=== PATIENT | male | born 1965 | race Hispanic/Latino ===

== ENCOUNTER 2018-09-26 10:30 | Inpatient (IN) | payer OTHER, SELFPAY ==
[~2018-09-26] VITALS: Ht 177.8 cm; Wt 98.1 kg
[2018-09-26 16:49] VITALS: BP 151/94
[2018-09-26 17:02] LABS: APPEARANCE,URINE Clear (CLEAR); BILIRUBIN,URINE Negative (NEGATIVE); COLOR,URINE Yellow (YELLOW); GLUCOSE, URINE (UA) Negative (NEGATIVE); KETONES,URINE Negative (NEGATIVE); LEUKOCYTE ESTERASE ,URINE Negative (NEGATIVE); NITRATE,URINE Negative (NEGATIVE); OCCULT BLOOD,URINE Trace (NEGATIVE); PROTEIN,URINE Negative (NEGATIVE)
[2018-09-26 17:09] LABS: INR 0.89 (0.85-1.15); PARTIAL THROMBOPLASTIN TIME 31.7 SEC (26.3-35.5); PROTHROMBIN TIME 9.4 SEC (9.6-11.6)
[2018-09-26] MEDS ORDERED: LOSA1TAB37 PO (17:12)
[2018-09-26 17:20] LABS: RBC,URINE 0-1 /HPF (0-1); WBC,URINE 0-1 /HPF (0-1)
[2018-09-26 17:21] LABS: BACTERIA,URINE Rare /HPF (None Seen); SQUAMOUS EPITHELIAL CELL,UR None Seen /HPF (0-2)
[2018-09-29] VITALS (26 sets, daily range): BP systolic 121–190; BP diastolic 74–104
[2018-09-29] MEDS: CEFAZOLIN SODIUM 1 GM VIAL IVP SCH ×3 (06:00→16:32)
[2018-09-29] MEDS ORDERED: LACTATED RINGERS 1000ML 1,000 ML IV ONE (06:52)
--- NOTE | 2018-09-29 06:57 | NUR ---
POTENTIAL FOR INFECTION: SHAVED LEFT KNEE / LEG PER LINDA AMBROSIO. WIPED DOWN WITH NAOMIE: 2% CHLORHEXIDINE GLUCONATE CLOTH PATIENTS PRE-OP SKIN PREP.
[2018-09-29] MEDS ORDERED: CEFAZOLIN SODIUM 1 GM VIAL ONE ×2 (07:34→10:49)
[2018-09-29] MEDS ORDERED: TRANEXAMIC ACID 1000MG/10ML IV ONE ×2 (07:34→11:53)
[2018-09-29] MEDS ORDERED: LIDOCAINE PF 2% 5ML ABBOJECT ONE (07:49)
[2018-09-29] MEDS ORDERED: DEXAMETHASONE SOD PHOSPHATE 10MG/ML 1ML VIAL ONE (07:49)
[2018-09-29] MEDS ORDERED: SUCCINYLCHOLINE 200MG/10ML SYR ONE ×2 (07:49→11:10)
[2018-09-29] MEDS ORDERED: GLYCOPYRROLATE 1 MG/5 ML SYRINGE ONE (07:50)
[2018-09-29] MEDS ORDERED: MIDAZOLAM HCL 1 MG/ML 2ML VIAL ONE (07:50)
[2018-09-29] MEDS ORDERED: PROPOFOL 10 MG/ML 20ML VIAL IV ONE (07:50)
[2018-09-29] MEDS ORDERED: ONDANSETRON HCL 4 MG/2 ML VIAL ONE (07:51)
[2018-09-29] MEDS ORDERED: NEOSTIGMINE 5MG/5ML SYR IV ONE (07:51)
[2018-09-29] MEDS ORDERED: ROCURONIUM 10MG/1ML SYR 10 MG/ML ML ONE (07:51)
[2018-09-29] MEDS ORDERED: FENTANYL CITRATE PF 50 MCG/1 ML 2ML VIAL ONE ×3 (07:52→11:00)
[2018-09-29] MEDS ORDERED: EPHEDRINE SULFATE 50 MG/ML AMPULE ONE (07:58)
[2018-09-29] MEDS ORDERED: PHENYLEPHRINE HCL 10 MG/ML 1ML VIAL IV ONE (08:03)
[2018-09-29] MEDS ORDERED: CEFAZOLIN SODIUM 1 GM VIAL IRRIG ONE (09:12)
[2018-09-29] MEDS ORDERED: FENTANYL CITRATE PF 50 MCG/1 ML 5ML AMP IV ONE (09:18)
[2018-09-29] MEDS ORDERED: ESMOLOL HCL 10 MG/ML 10 ML VIAL ONE (09:22)
[2018-09-29] MEDS: SODIUM CHLORIDE 0.9% 1000ML 1,000 ML IV SCH ×2 (10:52→21:22)
[2018-09-29] MEDS ORDERED: LIDOCAINE HCL-MPF 1% 2ML VIAL IVP PRN (11:00)
[2018-09-29] MEDS ORDERED: ONDANSETRON HCL 4 MG/2 ML VIAL IVP PRN (11:00)
[2018-09-29] MEDS ORDERED: POTASSIUM CHLORIDE 20MEQ/100ML 100 ML IV PRN (11:00)
[2018-09-29] MEDS ORDERED: CALCIUM CARBONATE 500 MG TABLET PO PRN (11:00)
[2018-09-29] MEDS ORDERED: POTASSIUM CHLORIDE 10% ELIXIR 20 MEQ/15 ML UDCUP PO PRN (11:00)
[2018-09-29] MEDS: ACETAMINOPHEN EXTRA STRENGTH 500 MG TABLET PO SCH ×2 (11:00→21:18)
[2018-09-29] MEDS ORDERED: DiphenhydrAMINE HCL 50 MG/ML VIAL IVP PRN (11:00)
[2018-09-29] MEDS ORDERED: TRAMADOL HCL 50 MG TABLET PO PRN (11:00)
[2018-09-29] MEDS ORDERED: FERROUS FUMARATE 324 MG TABLET PO PRN (11:00)
[2018-09-29] MEDS ORDERED: POTASSIUM CHLORIDE 20 MEQ ERTAB PO PRN (11:00)
[2018-09-29] MEDS ORDERED: TEMAZEPAM 15 MG CAPSULE PO PRN (11:00)
[2018-09-29] MEDS ORDERED: LIDOCAINE HCL-MPF 1% 5ML AMP IJ ONE (11:09)
[2018-09-29] MEDS ORDERED: LABETALOL 20 MG/4 ML DISP.SYRIN IV ONE (11:44)
[2018-09-29] MEDS ORDERED: MEPERIDINE-PF 25 MG/ML SYG ONE ×2 (11:48→11:59)
[2018-09-29] MEDS ORDERED: HYDRALAZINE HCL 20 MG/ML VIAL ONE (12:09)
[2018-09-29] MEDS: OXYCODONE HCL 5 MG TAB PO PRN (13:07)
--- NOTE | 2018-09-29 16:28 | NUR ---
DC PLAN VISITED WITH PATIENT. PATIENT LIVES WITH SPOUSE. INDEPENDENT ABLE TO PERFORM ADL'S. PATIENT HAS NO SERVICES OR DME'S. FEELS SAFE TO RETURN HOME. GOT COPY OF INSURANCE CARD. CALLED [facility]. CALLED [facility] PREFFERED PHARMACY OF PATIENT. DOES DO DME BUT NOT SURE IF WOULD BE ABLE TO GIVE EQUIPMENT. MEKHI SIGNED FOR DME AND APC. INFO SENT TO [facility], [facility], [facility]. JENNY WILL CONTINUE TO FOLLOW. Addendum: 09/29/18 at 1632 by CHARLIE STILL RN CM Amended: Links added.
[2018-09-29] MEDS: KETOROLAC TROMETHAMINE 15MG/ML IV PRN (16:29)
[2018-09-29] MEDS: PREGABALIN 25 MG CAP PO SCH (21:17)
[2018-09-29] MEDS: ASPIRIN 325 MG TABLET PO SCH (21:17)
[2018-09-29] MEDS: CELECOXIB 200 MG CAP PO SCH (21:18)
[2018-09-29] MEDS: FAMOTIDINE 20MG TAB 20 MG TAB PO SCH (21:18)
[2018-09-30] VITALS (7 sets, daily range): BP systolic 105–136; BP diastolic 64–90
[2018-09-30] MEDS: CEFAZOLIN SODIUM 1 GM VIAL IVP SCH (00:32)
[2018-09-30] MEDS: ACETAMINOPHEN EXTRA STRENGTH 500 MG TABLET PO SCH ×3 (03:26→18:27)
[2018-09-30 04:28] LABS: HEMATOCRIT 36.6 % (42-54); MEAN CORPUSCULAR HEMOGLOBIN 31.1 pg (27.0-33.0); MEAN CORPUSCULAR HGB CONC 33.7 g/dL (32.0-36.0); MEAN CORPUSCULAR VOLUME 92.3 fL (79-99); PLATELET COUNT (AUTO) 240 K/uL (130-400); RED BLOOD CELL COUNT(AUTO) 3.96 MIL/uL (4.50-6.20); RED CELL DISTRIBUTION WIDTH 13.4 % (11.0-15.5); WHITE BLOOD COUNT (AUTO) 11.6 K/uL (4.8-10.8)
[2018-09-30 04:36] LABS: CREATININE 0.9 mg/dL (0.5-1.5); POTASSIUM 3.8 mmol/L (3.5-5.1)
[2018-09-30] MEDS: OXYCODONE HCL 5 MG TAB PO PRN ×5 (05:52→20:05)
[2018-09-30] MEDS: SODIUM CHLORIDE 0.9% 1000ML 1,000 ML IV SCH (06:52)
[2018-09-30] MEDS: PREGABALIN 25 MG CAP PO SCH ×2 (08:49→20:05)
[2018-09-30] MEDS: ASPIRIN 325 MG TABLET PO SCH ×2 (08:49→20:05)
[2018-09-30] MEDS: CELECOXIB 200 MG CAP PO SCH ×2 (08:50→20:04)
[2018-09-30] MEDS: TAMSULOSIN HCL 0.4 MG CAP.ER.24H PO SCH (08:50)
[2018-09-30] MEDS: FAMOTIDINE 20MG TAB 20 MG TAB PO SCH ×2 (08:50→20:04)
[2018-09-30] MEDS: POLYETHYLENE GLYCOL 3350 17 GM POWD.PACK PO SCH (08:50)
[2018-09-30] MEDS: LOSARTAN/HYDROCHLOROTHIAZIDE 50-12.5MG TABLET PO SCH (09:00)
--- NOTE | 2018-09-30 16:16 | NUR ---
BALDEV RAMIREZ SPOKE TO [facility] SAID NOT IN NETWORK BUT CAN PRIVATE PAY. CALLED [facility] SAID STILL CHECKING. SENT INFO TO [facility] TO SEE IF IN NETWORK. JENNY WILL CONTINUE TO FOLLOW. Addendum: 09/30/18 at 1618 by CHARLIE STILL RN CM Amended: Links added.
[2018-09-30] MEDS: KETOROLAC TROMETHAMINE 15MG/ML IV PRN (20:01)
[2018-10-01] MEDS: OXYCODONE HCL 5 MG TAB PO PRN ×4 (00:59→15:34)
[2018-10-01] MEDS: ACETAMINOPHEN EXTRA STRENGTH 500 MG TABLET PO SCH ×2 (02:15→09:47)
[2018-10-01 03:35] VITALS: BP 126/69
[2018-10-01] MEDS: LOSARTAN/HYDROCHLOROTHIAZIDE 50-12.5MG TABLET PO SCH ×2 (07:29→09:51)
[2018-10-01 07:43] VITALS: BP 139/86
[2018-10-01] MEDS: CELECOXIB 200 MG CAP PO SCH (09:46)
[2018-10-01] MEDS: ASPIRIN 325 MG TABLET PO SCH (09:46)
[2018-10-01] MEDS: PREGABALIN 25 MG CAP PO SCH (09:46)
[2018-10-01] MEDS: FAMOTIDINE 20MG TAB 20 MG TAB PO SCH (09:47)
[2018-10-01] MEDS: TAMSULOSIN HCL 0.4 MG CAP.ER.24H PO SCH (09:47)
[2018-10-01] MEDS: POLYETHYLENE GLYCOL 3350 17 GM POWD.PACK PO SCH (09:47)
[2018-10-01] MEDS ORDERED: ASPI-1012 PO (10:52)
[2018-10-01] MEDS ORDERED: HYDR-4457 PO (10:52)
[2018-10-01 11:19] VITALS: BP 126/90
--- NOTE | 2018-10-01 17:35 | NUR ---
DISCHARGE INSTRUCTIONS GIVEN AND EXPLAINED UTILIZING TEACH/BACK METHOD. PT/FAMILY VERBALIZED UNDERSTANDING. DISCHARGE TO [facility]. REPORT GIVEN TO RIGO RODRIGUEZ RN. CALL FOR ANY CONCERNS. [phone] KAUR ON 10/22/18 @08:15 A.M. Call office for any concerns 19/11 at DIET: -Resume your previous home diet. MEDICATIONS: -Resume your previous home medications if any. -Please take prescription medications as instructed. -If you need a prescription refill on your pain medications, please call office a few days before you take your last pain pill. WOUND CARE: -Nurse to remove dressing: DAILY DRESSING CHANGE -Continue daily dressing changes if needed after first removal. ACTIVITY: -Ambulate (walk) as tolerated with the use of crutches or walker until your able to walk independently. -Wear your ANDIE hose on operative leg upon awaking up until going to bed for the night. -When resting keep your leg elevated but avoid placing pillow(s) under your knees. PHYSICAL THERAPY: Follow Physical Therapist recommendations/instructions. -Gait training with walker and weight bearing as tolerated, advance to cane as per Nurse/Therapist discretion -Active/passive assisted flexion/extension exercises to operative knee(s) -Do quadriceps strengthening/hamstring strengthening exercises to operative knee(s) -Modalities as per Physical Therapist discretion Call 911 or go to emergency room if you have any chest pain/discomfort, shortness of breath/difficulty breathing or as needed.
[2018-10-02] MEDS ORDERED: BISACODYL 10 MG SUPP.RECT RC PRN (11:00)
== END 2018-10-01 18:07 | disposition home health service (06) | DRG 470 ==
LOC: DAHIP 09-29 06:19 → 4AH 09-29 12:29
PROVIDERS: ADMIT Orthopaedic Surgery; ATTEND Orthopaedic Surgery
PROC: 3E0T3BZ Introduction of Anesthetic Agent into Peripheral Nerves and Plexi, Percutaneous Approach (ICD-10-PCS; 2018-09-29)
PROC: 0SRD0J9 Replacement of Left Knee Joint with Synthetic Substitute, Cemented, Open Approach (ICD-10-PCS; principal; 2018-09-29 08:35)
DX: M17.12 Unilateral primary osteoarthritis, left knee (principal); E78.5 Hyperlipidemia, unspecified; I11.9 Hypertensive heart disease without heart failure; G89.29 Other chronic pain; E66.9 Obesity, unspecified; Z68.31 Body mass index [BMI] 31.0-31.9, adult; Z91.041 Radiographic dye allergy status
CPT/HCPCS: 36415; 80048; 81001; 85027; 85610; 85730; 87641; 88305; 88311; 97039; G0378; J0330; J0360; J0690; J1100; J1885; J2001; J2175; J2250; J2370; J2405; J2704; J2710; J3010; J3490; J7030; J7120